=== PATIENT | male | born 1955 | race Caucasian/White ===

== ENCOUNTER 2022-11-11 10:06 | Day surgery (SDC) | payer MEDICARE, SELFPAY ==
--- NOTE | 2022-11-05 11:32 | RAD_ITS ---
STUDY: X-RAY CHEST REASON FOR EXAM: Male, 67 years old. Preop for hip surgery TECHNIQUE: PA and lateral views of the chest. COMPARISON: None. FINDINGS: The lungs are clear and expanded. There is no demonstrated pleural abnormality. Normal size heart. Normal mediastinum and liyah. Normal visualized pulmonary arteries. Normal visualized aortic arch and descending thoracic aorta. Normal visualized thoracic spine. Normal visualized ribs, clavicles, and shoulders. There is no demonstrated abnormality of the visualized soft tissue structures of the upper abdomen. RAD/Chest PA and Lateral IMPRESSION: No acute pulmonary process Electronically Signed: Joel Martel MD at 14:24 EDT ,
[2022-11-05 16:03] LABS: Absolute Lymphocyte Count 0.93 X10^3/uL (0.83-4.51); Absolute Neutrophil Count 3.3 X10^3/uL (2.0-7.7); Basophil# 0.05 X10^3/uL; Eosinophil# 0.05 X10^3/uL; Hematocrit 39.1 % (40-54); Lymphocyte # 0.93 X10^3/ul (0.83-4.51); Lymphocyte % 19.2 % (19-41); Mean Corp Hgb Conc 33.2 g/dL (32-36); Mean Corpuscular Hgb 28.6 pg (27.0-32.0); Mean Corpuscular Volume 86.1 fL (80-94); Mean Platelet Vol. 10.9 fl (6.2-12.0); Monocyte# 0.48 X10^3/uL; Monocyte% 9.9 % (0-10); NRBC Flagged by Analyzer 0 % (0-5); Neutrophil % 68.3 % (47-70); Platelet Count 197 K/mm3 (150-450); RBC Distribution Width CV 13.4 % (11.6-14.6); RBC Distribution Width SD 41.7 fl (35.1-43.9); Red Blood Count 4.54 M/mm3 (4.6-6.2); White Blood Count 4.8 K/mm3 (4.4-11.0)
[2022-11-05 16:05] LABS: ALB/GLOB Ratio 0.6 RATIO (0.9-2.4); AST(SGOT) 21 U/L (15-37); Alanine Aminotransfer ALT/SGPT 31 U/L (16-61); Albumin, Serum 2.9 g/dL (3.2-5.0); Alkaline Phosphatase 288 U/L (45-117); Anion Gap 8 (5-15); BUN 39 mg/dL (7-18); BUN/Creat Ratio 13.6 RATIO (10-20); Chloride 100 mmol/L (98-107); Creatinine, Serum 2.86 mg/dL (0.70-1.30); EST Glomerular Filtration Rate 24 mL/min (>60); Est Glom Filt Rate - Afr Amer 29 mL/min (>60); Globulin 4.9 g/dL (2.2-4.2); Glucose 151 mg/dL (74-106); Potassium 3.9 mmol/L (3.5-5.1); Protein, Total 7.8 g/dL (6.4-8.2); Sodium Level 131 mmol/L (136-145)
[2022-11-11] VITALS (8 sets, daily range): BP systolic 88–134; BP diastolic 49–74; PULSE 62–67; RESP 16–18; TEMP 36.2–36.8; O2SAT 92–99; BMI 40.3
[2022-11-11] MEDS: Lactated Ringers 1,000 ML 15 ML IV (10:58)
--- NOTE | 2022-11-11 11:00 | RAD_ITS ---
EXAM: Intraoperative study, 6 views HISTORY: FX COMPARISON: None Technique: 6 intraoperative C-arm films FINDINGS: 6 limited intraoperative C-arm films performed as the patient has undergone open reduction internal fixation of bimalleolar fractures. Surgical hardware along the distal lateral fibula and medial malleolus free of complication. Alignment at the fracture sites is anatomic, follow-up is recommended to assure complete osseous union. RAD/Ankle 2 Views IMPRESSION: No intraoperative complications noted during open reduction internal fixation of fractures in the distal tibia and fibula. Alignment at the fracture sites is anatomic. Follow-up is recommended to assure complete osseous union Electronically Signed: Joel Martel MD at 14:22 EDT ,
[2022-11-11 11:20] LABS: Bedside Glucose 181 mg/dL (74-106)
--- NOTE | 2022-11-11 11:36 | DCINST_ITS ---
Discharge Instructions Diet Discharge Diet: No restrictions Activity Discharge Activity: May Shower (Please utilize cast bag to keep the dressings clean, dry, and intact to the right leg) and Use Walker (Patient to remain nonweightbearing to the right lower extremity with assistance of walker, wheelchair, and knee scooter.) Weight Bearing Status: No weight bearing (Patient may not weightbearing to the right lower extremity with assistance of walker, wheelchair, knee scooter) Keep extremity elevated above heart level: Right Leg (Elevate right lower extremity at all times of rest for postoperative edema control) Dressing / Incision Call your doctor if you observe: Fever of 101 or Higher, Shortness of breath, Chest pain, Calf discomfort and Uncontrolled pain Change Dressing in: do not change dressing Remove Dressing in: leave in place till F/U (Physician will change dressings at first postoperative appointment) Cleanse incision/area with: Do not get Incision Wet (Do not get dressings wet) and Keep Dressing Clean & Dry (Keep dressings clean, dry, and intact to the right lower extremity) Follow Up Care Please Follow Up With: Donnie Edward DPM When: Patient has first postoperative appointment next week in office Test Results: Test results from this visit will be discussed in further detail at your follow- up appointment, if applicable. Discharge Plan Admission Primary Reason for Your Visit: Displaced trimalleolar right ankle fracture Attending Provider: Donnie Edward Primary Care Provider: Jordi Saunders Consulting Providers: Jennifer Moura Discharge Orders/Prescriptions Prescriptions: New doxycycline hyclate 100 mg tablet 100 mg PO DAILY Qty: 10 0RF oxycodone 5 mg tablet 5 mg PO Q6H PRN (Reason: pain) 7 Days Qty: 28 0RF acetaminophen 325 mg tablet 325 mg PO Q6H PRN (Reason: pain) 7 Days Qty: 28 0RF No Action pravastatin 40 MG tablet 20 mg PO QHS aspirin 81 MG tablet 81 mg PO DAILY@0800 pantoprazole 40 MG tablet 40 mg PO DAILY ferrous sulfate 325 MG tablet 300 mg PO DAILY Humulin 70/30 Insulin Pen 100 unit/mL (70-30) Insulin Pen 30 unit SUBCUT QHS Humulin 70/30 Insulin Pen 100 unit/mL (70-30) Insulin Pen 70 unit SUBCUT QHS cholecalciferol (vitamin D3) [Vitamin D3] 50 mcg (2,000 unit) Tablet 50 mcg PO DAILY Allergy Relief (cetirizine) 10 mg Capsule 10 mg PO DAILY furosemide 40 mg tablet 40 mg PO DAILY carvedilol 12.5 mg Tablet 12.5 mg PO BID Rx Instructions: must administer with a meal/food amlodipine 5 mg Tablet 5 mg PO DAILY Referrals / Follow Up: Jordi Saunders MD [Primary Care Provider] - Disposition Disposition (needs filled in before D/C Order can be placed): Home, Self Care
--- NOTE | 2022-11-11 15:05 | RAD_ITS ---
STUDY: X-RAY - RIGHT ANKLE REASON FOR EXAM: Male, 67 years old. Postop TECHNIQUE: 3 view(s) of the ankle. COMPARISON: None. FINDINGS: Patient is postop from open reduction internal fixation of distal tibial and fibular fractures. Study is limited by overlying casting material. Patient is status post open reduction internal fixation of distal tibial and fibular fractures. Alignment at the fracture sites is anatomic. No postoperative complications. Follow-up recommended to assure complete osseous union. Normal postoperative soft tissue swelling and subcutaneous emphysema noted. RAD/Ankle min 3 Views IMPRESSION: No postoperative complications after open reduction internal fixation of distal fibular and tibial fractures. Alignment at the fracture sites is anatomic, follow-up recommended to assure complete osseous union Electronically Signed: Joel Martel MD at 15:34 EDT ,
[2022-11-11 15:26] LABS: Bedside Glucose 224 mg/dL (74-106)
--- NOTE | 2022-11-11 15:30 | PCM.OPRPT ---
Problems Associated Problem List Diagnoses (1) Diabetes mellitus with diabetic polyneuropathy: (2) Displaced trimalleolar fracture of right lower leg, initial encounter for closed fracture: Report of Operation Date of Procedure: 11/11/22 Pre-Operative Diagnosis: Displaced trimalleolar fracture right ankle Post-Operative Diagnosis: Displaced trimalleolar fracture right ankle Surgery/Procedure Performed:: ORIF displaced trimalleolar fracture right ankle Description of Surgical Findings:: See operative notes for findings Surgeon: Donnie Edward registered nursing professor: Dr. Chantelle Hylton, DPM PGY-3 Type of Anesthesia: General/Supplemental (Popliteal block right leg) Specimen's removed: None Drains: None Estimated Blood Loss (mL): < 15mL Description of Procedure: HPI/indication: Patient is a 67-year-old male with PMHx left transmetatarsal amputation, right partial hallux amputation, right second digit amputation; DM type II with peripheral polyneuropathy, diabetic retinopathy, morbid obesity. Patient initially fell on 10/20/2022 on a softer mat due to balance issues secondary to his severe diabetic peripheral polyneuropathy, he felt that he may have sprained the right ankle at the time and did not follow-up in the ED or with primary care and continue to ambulate until 10/27/2022 when he heard an audible pop in the ankle when turning to sit in the chair. At this time he did present to the ED at his local hospital and had x-rays performed demonstrating a trimalleolar ankle fracture of the right leg. He was reduced into a posterior splint sugar-tong cast and followed up with an orthopedics team. Daughter stated that with his diabetes they referred him to podiatry for management of medical complications. He presented in office with me on 10/30/2022 with evidence of ambulating on the splint and displaced trimalleolar ankle fracture of the right ankle. Patient voiced that he wanted a reduction and casting however reduction was unsuccessful due to deformity, age of fracture, flexing/guarding, and his restless leg. Discussed surgical intervention of his displaced trimalleolar right ankle fracture in detail with the patient and his daughter. I discussed due to the instability of the ankle this would not be an elective procedure as this is necessary to fixate for continued ambulation/mobility. They voiced understanding of this. Reviewed the conditions and reviewed treatment options. We discussed the procedure in great detail. Reviewed the rationale of the procedure with this patient in great detail. Discussed the possible benefits versus the risks and potential complications in detail. Advised the patient of the risk and complications include but are not limited to the following: Pain, continued pain, complex regional pain syndrome, deformity, continue deformity, recurrence, overcorrection, under correction, numbness/neuritis, swelling, scarring, poor cosmetic result, bleeding, hardware failure, symptomatic hardware, need for further surgery/procedures, fracture, nonunion, delayed union, nonunion/delayed healing, dehiscence, infection, blood clots, allergic reaction, transfer lesion, postoperative arthritis, increased risk of Charcot arthropathy, weakness, shoe gear problems, inability to walk, inability to wear shoes, stroke, heart attack, addiction to pain medication, loss of limb, loss of function, loss of life. Patient expressed understanding and agreement. Patient was able to repeat these back. The alternative options were discussed and reviewed with the patient in great detail in terms of surgical intervention, reviewed all risks versus possible benefits of all these options. The typical postoperative course was reviewed. Patient expressed understanding and agreement. Consent forms were signed freely. Patient was medically cleared by his primary care physician. No promises were made. No guarantees were given. Patient was scheduled for ORIF of the displaced trimalleolar ankle fracture at [facility] on 11/11/2022. All diagnostic data and H&P was reviewed prior to entering the operating room. Operative limb was signed prior to entering the operating room. Procedure: Patient was brought into the operating room under mild sedation and placed on the table in the supine position. At this time anesthesia team performed a popliteal block of the right lower extremity. Following IV sedation and induction of general anesthesia a pneumatic thigh tourniquet was placed about the patient's right thigh. A bump was placed under the right hip. And the right leg was elevated with a blanket bump. The right leg was then scrubbed, prepped, and draped in the usual aseptic manner. An Esmarch bandage was utilized to exsanguinate the right foot and leg and the pneumatic thigh tourniquet was inflated to 325 mmHg. At this time attention was directed to the right leg with prominent landmarks were mapped under the guidance of fluoroscopy and level of fractures were identified. Next, an linear incision was made overlying the lateral fibula utilizing a #15 blade. Incision was deppened through the subcutaneous tissues utilizing sharp and blunt dissection. Care was taken to identify all vital neurovascular structures and retract these from the surgical site. Incision was carried down the the level of bone and the fibular fracture was identified and transected at the fracture site. Fracture site was debrided of remaining hematoma and fragments and interposed soft tissue utilizing a rongeur. The fracture site was then flushed with copious amounts of normal sterile saline. The fracture fragment was then reduced utilizing a lobster claw clamp. Reduction was confirmed in multiple fluoroscopic views. At this time following AO principles a 3.5 mm x 32 mm titanium cortical lag screw was placed across the fracture site. Clamp was removed and reduction of the fibular fracture was confirmed in multiple fluoroscopic views. Next following AO principles a right locking distal titanium 6-hole fibular plate was anchored to the fibula utilizing 2 threaded olive wires. Position of the plate was confirmed in multiple fluoroscopic views. Next following AO principles the most distal holes of the fibular plate were filled with five 3.0 mm titanium locking screws measuring 14 mm, 16 mm x 3, 18 mm. The hole just inferior to the fracture fragment was filled with a 3.5 mm x 16 mm titanium locking screw. The hole just superior to the fracture fragment was filled with a 3.5 mm x 16 mm titanium locking screw. The oblong hole was filled with a 3.5 mm x 12 mm titanium cortical screw. Continuing to move distal to proximal and the remaining holes were filled with a 3.5 mm x 14 mm titanium locking screw and a 3.5 mm x 20 mm titanium locking screw. The site was then flushed with copious amounts of normal sterile saline. Fibular reduction was confirmed in multiple fluoroscopic views and deemed excellent. At this time attention was directed to the medial aspect of the ankle overlying the medial malleolar fracture fragment where a J shaped incision was performed overlying the medial malleolus utilizing a #15 blade. Incision was deepened utilizing sharp and blunt dissection care was taken to identify all vital neurovascular structures and retract these from the surgical site. The medial malleoli fracture site was identified and transected and the site was debrided utilizing a rongeur. A pointed reduction clamp was utilized to reduce the medial malleolus fracture which was confirmed in multiple fluoroscopic views. Next following AO principles two 4.0 mm x 48 mm titanium cannulated cancellous screws with washers were placed across the medial malleolus fracture with excellent reduction in multiple fluoroscopic views. Following reduction of the lateral and medial malleolus fractures it was noted the posterior malleolus was reduced via ligamentotaxis. At this time final fluoroscopic images were obtained and reviewed demonstrating anatomic reduction of the ankle. Next, incision sites were then flushed with copious amounts of normal sterile saline. Medial incision deep tissues were closed with 2-0 Vicryl, subcutaneous tissues closed with 4-0 Monocryl, and skin reapproximated with 2-0 Prolene in simple interrupted fashion. Lateral incision deep tissues were closed with 2-0 Vicryl, subcutaneous tissues closed with 4-0 Monocryl, and skin reapproximated with 2-0 Prolene in simple interrupted fashion. At this time the pneumatic thigh tourniquet was deflated and a prompt hyperemic response was noted to the digits of the right foot. Incision sites were dressed with Betadine soaked Adaptic, 4 x 4 gauze, ABD, Kerlix, web roll cast padding, 4 inch Darshan, 6 inch Darshan. A well molded posterior splint was applied and sugar-tong cast and anchored with 4 inch Darshan and 6 inch Darshan and modified Maxwell compression style. The patient tolerated the procedure and anesthesia well and was transported the PACU with vital signs stable and vascular status intact to the right leg and foot. Postoperative discharge instructions were given to family outlining his postoperative care including to keep dressings clean, dry, and intact to the right lower extremity; He is to remain strictly nonweightbearing to the right lower extremity with assistance of wheelchair, knee scooter, and walker. He is to leave dressings intact to the right lower extremity. Family understands our discussion following surgery in regards to his weightbearing status. Postoperative radiographs were ordered and reviewed prior to leaving the OR. He has first postoperative appointment with me in office early next week. Grafts/Implants Used: Arthrex titanium distal fibular plate; 13 screws, 2 washers Complications None Admit VTE Documentation VTE Present on Admission: Yes (Patient currently on aspirin 81 mg daily) VTE Mechan Device Prophylaxis: SCD's VTE Pharm Prophylaxis ordered?: No
== END 2022-11-11 17:04 | disposition home or self-care (01) ==
LOC: SDC 10:08 → AC 10:09
PROVIDERS: PCP Internal Medicine Infectious Disease; Referring Provider Student in an Organized Health Care Education/Training Program; Visit Provider Student in an Organized Health Care Education/Training Program
PROC: (CPT 27822; principal; 2022-11-11 11:40)
DX: S82.851A Displaced trimalleolar fracture of right lower leg, initial encounter for closed fracture (principal); E11.42 Type 2 diabetes mellitus with diabetic polyneuropathy; Z79.4 Long term (current) use of insulin; F17.220 Nicotine dependence, chewing tobacco, uncomplicated; E66.9 Obesity, unspecified; I10 Essential (primary) hypertension; K21.9 Gastro-esophageal reflux disease without esophagitis; E78.00 Pure hypercholesterolemia, unspecified; E61.1 Iron deficiency; Z79.82 Long term (current) use of aspirin; Z79.899 Other long term (current) drug therapy
CPT/HCPCS: 27822; 01480; 64445; 36415; 71046; 73600; 73610; 76000; 80053; 82962; 85025; 93005; C1713; J7120; J2405; J3475